=== PATIENT | male | born 1960 | race African-American/Black ===

== ENCOUNTER 2019-07-21 01:56 | Inpatient (IN) | payer OTHER ==
[~2019-07-21] VITALS: Ht 185.4 cm; Wt 79.4 kg
--- NOTE | 2019-07-21 02:44 | PHYS DOC ---
Past Medical History Past Medical History: No Pertinent History Past Surgical History: No Surgical History Alcohol Use: Occasionally Drug Use: None Adult General Chief Complaint Chief Complaint: WEAKNESS/GENERALIZED HPI HPI Patient is a 58 year old -[place] male who presents resents a generalized weakness, malaise, body aches, nonproductive cough for 3 days. Patient also reports fever for the first 2 days chills and sweats. No fever in the past 24 hours. Denies history of COPD, asthma and chronic lung disease. Denies chest pain, nausea vomiting and abdominal pain. No other acute symptoms or complaints [] Review of Systems Review of Systems ROS PER Hpi All other systems were reviewed and found to be within normal limits, except as documented in this note. Current Medications Current Medications Current Medications Medications (Trade) Dose Ordered Sig/Della Start Time Stop Time Status Last Admin Dose Admin Acetaminophen/ Hydrocodone Bitart (Lortab 5/325) 1 tab 1X ONCE 07/21/19 03:45 07/21/19 03:46 UNV Oseltamivir Phosphate (Tamiflu) 75 mg DAILY 07/21/19 09:00 07/26/19 08:59 UNV Physical Exam Physical Exam Constitutional: Well developed, well nourished, no acute distress, non-toxic appearance. [] HENT: Normocephalic, atraumatic, bilateral external ears normal, oropharynx moist, nose normal. [] Eyes: PERRLA, EOMI, conjunctiva normal, no discharge. [] Neck: Normal range of motion, no tenderness, supple, no stridor. [] Cardiovascular:Heart rate regular rhythm, no murmur [] Lungs & Thorax: Respirations nonlabored, coarse rhonchi bilaterally, no rales or wheezing [] Abdomen: Bowel sounds normal, soft, no tenderness, no masses, no pulsatile masses. [] Skin: Warm, dry, no erythema, no rash. [] Back: No tenderness, no CVA tenderness. [] Extremities: No tenderness, no cyanosis, no clubbing, ROM intact, no edema. [] Neurologic: Alert and oriented X 3, normal motor function, normal sensory func tion, no focal deficits noted. [] Psychologic: Affect normal, judgement normal, mood normal. [] Current Patient Data Vital Signs Vital Signs Date Time Temp Pulse Resp B/P (MAP) Pulse Ox O2 Delivery O2 Flow Rate FiO2 1/15/20 01:57 98.6 88 24 134/78 (96) 90 Room Air 98.6 Lab Values Laboratory Tests Test 07/21/19 02:41 07/21/19 03:02 07/21/19 03:06 07/21/19 03:28 Sodium Level 124 mmol/L (136-145) L Potassium Level 3.4 mmol/L (3.5-5.1) L Chloride Level 90 mmol/L (98-107) L Carbon Dioxide Level 25 mmol/L (21-32) Anion Gap 9 (6-14) Blood Urea Nitrogen 35 mg/dL (8-26) H Creatinine 1.5 mg/dL (0.7-1.3) H Estimated GFR (Cockcroft-Gault) 47.7 BUN/Creatinine Ratio 23 (6-20) H Glucose Level 114 mg/dL (70-99) H Calcium Level 8.2 mg/dL (8.5-10.1) L Total Bilirubin 0.7 mg/dL (0.2-1.0) Aspartate Amino Transferase (AST) 146 U/L (15-37) H Alanine Aminotransferase (ALT) 75 U/L (16-63) H Alkaline Phosphatase 80 U/L (46-116) Troponin I Quantitative < 0.017 ng/mL (0.000-0.055) Total Protein 7.7 g/dL (6.4-8.2) Albumin 3.0 g/dL (3.4-5.0) L Albumin/Globulin Ratio 0.6 (1.0-1.7) L Thyroid Stimulating Hormone (TSH) 1.230 uIU/mL (0.358-3.74) Influenza Type A Antigen Positive (NEGATIVE) Influenza Type B Antigen Negative (NEGATIVE) White Blood Count 4.7 x10^3/uL (4.0-11.0) Red Blood Count 4.16 x10^6/uL (4.30-5.70) L Hemoglobin 12.6 g/dL (13.0-17.5) L Hematocrit 36.8 % (39.0-53.0) L Mean Corpuscular Volume 89 fL (79-100) Mean Corpuscular Hemoglobin 30 pg (25-35) Mean Corpuscular Hemoglobin Concent 34 g/dL (31-37) Red Cell Distribution Width 12.5 % (11.5-14.5) Platelet Count 114 x10^3/uL (140-400) L Neutrophils (%) (Auto) 67 % (31-73) Lymphocytes (%) (Auto) 19 % (24-48) L Monocytes (%) (Auto) 14 % (0-9) H Eosinophils (%) (Auto) 0 % (0-3) Basophils (%) (Auto) 0 % (0-3) Neutrophils # (Auto) 3.1 x10^3/uL (1.8-7.7) Lymphocytes # (Auto) 0.9 x10^3/uL (1.0-4.8) L Monocytes # (Auto) 0.7 x10^3/uL (0.0-1.1) Eosinophils # (Auto) 0.0 x10^3/uL (0.0-0.7) Basophils # (Auto) 0.0 x10^3/uL (0.0-0.2) Urine Collection Type Unknown Urine Color Yellow Urine Clarity Clear Urine pH 5.5 Urine Specific [place] 1.020 Urine Protein 100 mg/dL (NEG-TRACE) Urine Glucose (UA) Negative mg/dL (NEG) Urine Ketones (Stick) Negative mg/dL (NEG) Urine Blood Moderate (NEG) Urine Nitrite Negative (NEG) Urine Bilirubin Negative (NEG) Urine Urobilinogen Dipstick 1.0 mg/dL (0.2 mg/dL) Urine Leukocyte Esterase Negative (NEG) Urine RBC 3-5 /HPF (0-2) Urine WBC Occ /HPF (0-4) Urine Squamous Epithelial Cells Occ /LPF Urine Amorphous Sediment Present /HPF Urine Bacteria 0 /HPF (0-FEW) Urine Granular Casts Few /HPF Urine Mucus Slight /LPF Laboratory Tests 07/21/19 03:06 Laboratory Tests 07/21/19 02:41 EKG EKG EKG: reviewed[] Radiology/Procedures Radiology/Procedures CXR: reviewed[] Course & Med Decision Making Course & Med Decision Making Pertinent Labs and Imaging studies reviewed. (See chart for details) [Generalized weakness, and cough. Patient influenza A positive and hyponatremic ] Dragon Disclaimer Dragon Disclaimer This electronic medical record was generated, in whole or in part, using a voice recognition dictation system. Departure Departure Impression: Primary Impression: Hyponatremia Additional Impression: Influenza A Disposition: 09 ADMITTED INPATIENT Condition: STABLE Problem Qualifiers ALAN KEITH DO Jul 21, 2019 02:44
[2019-07-21 02:59] LABS: CALCIUM 8.2 mg/dL (8.5-10.1); CREATININE 1.5 mg/dL (0.7-1.3); GFR 47.7; POTASSIUM 3.4 mmol/L (3.5-5.1)
[2019-07-21 03:06] LABS: ALBUMIN/GLOBULIN RATIO 0.6 (1.0-1.7); TOTAL BILIRUBIN 0.7 mg/dL (0.2-1.0); TOTAL PROTEIN 7.7 g/dL (6.4-8.2)
[2019-07-21 03:11] LABS: BASO % 0 % (0-3); EOS % 0 % (0-3); HEMATOCRIT 36.8 % (39.0-53.0); HEMOGLOBIN 12.6 g/dL (13.0-17.5); LYMPH # 0.9 x10^3/uL (1.0-4.8); LYMPH % 19 % (24-48); MEAN CORPUSCULAR HEMOGLOBIN 30 pg (25-35); MEAN CORPUSCULAR HGB CONC 34 g/dL (31-37); MEAN CORPUSCULAR VOLUME 89 fL (79-100); MONO # 0.7 x10^3/uL (0.0-1.1); MONO % 14 % (0-9); NEUT # 3.1 x10^3/uL (1.8-7.7); NEUT % 67 % (31-73); PLATELET COUNT 114 x10^3/uL (140-400); RED BLOOD COUNT 4.16 x10^6/uL (4.30-5.70); RED CELL DISTRIBUTION WIDTH 12.5 % (11.5-14.5); WHITE BLOOD COUNT 4.7 x10^3/uL (4.0-11.0)
[2019-07-21 03:34] LABS: INFLUENZA A PATIENT POSITIVE (NEGATIVE); INFLUENZA B PATIENT NEGATIVE (NEGATIVE)
[2019-07-21 03:36] LABS: BILIRUBIN,URINE NEGATIVE (NEG); CLARITY,URINE CLEAR; COLOR,URINE YELLOW; NITRITE,URINE NEGATIVE (NEG); PH,URINE 5.5; PROTEIN,URINE 100 mg/dL (NEG-TRACE)
[2019-07-21 03:41] LABS: AMORPHOUS SEDIMENT,UR PRESENT /HPF; BACTERIA,URINE 0 /HPF (0-FEW); GRANULAR CASTS,URINE FEW /HPF; SQUAMOUS EPITHELIAL CELL,UR OCC /LPF; WBC,URINE OCC /HPF (0-4)
[2019-07-21] MEDS ORDERED: OSELTAMIVIR 75 MG CAPSULE PO ONE (03:45)
[2019-07-21] MEDS ORDERED: HYDROcodone/APAP 5/325MG 1 TAB TABLET PO ONE (03:45)
[2019-07-21] MEDS ORDERED: IV NORMAL SALINE 1000ML BAG 1,000 ML IV ONE (04:00)
[2019-07-21] MEDS: IV NORMAL SALINE 1000ML BAG 1,000 ML IV SCH ×3 (05:03→20:16)
--- NOTE | 2019-07-21 05:17 | RAD ---
Chest AP portable at 0252: Reason for examination: Short of breath. The heart size is normal. Mediastinum is unremarkable. Lung martinez show some linear density consistent with atelectasis bilaterally. No pleural effusions or consolidative infiltrates are present. No acute bony abnormalities are seen. IMPRESSION: Linear densities consistent with atelectasis at the lung bases. Electronically signed by: Sue Shipley MD (07/21/2019 5:14 AM) [facility] [place]
--- NOTE | 2019-07-21 05:43 | EKG ---
[facility] [address] [place] [address] Test Date: 2019-07-21 Test Time: 02:19:13 Pat Name: FER BAILEY Department: Room: Gender: M Ela Teacher: : 1960 Requested By: ALAN KEITH Order Number: [id number] Reading MD: Measurements Intervals Rolfe Rate: 82 P: 66 SC: 168 QRS: 49 QRSD: 90 T: 63 QT: 348 QTc: 409 Interpretive Statements SINUS RHYTHM NON SPECIFIC ST-T ABNORMALITY (ELEVATION) OTHERWISE NORMAL ECG No previous ECG available for comparison
[2019-07-21 07:15] VITALS: BP 114/79
[2019-07-21] MEDS: IPRATRPIUM/ALBUTEROL 0.5/2.5MG 3 ML NEBU. NEB SCH ×4 (07:43→19:22)
[2019-07-21 10:59] VITALS: BP 119/76
--- NOTE | 2019-07-21 14:44 | HP ---
ADMIT DATE: 07/21/2019 CHIEF COMPLAINT: Weakness. HISTORY OF PRESENT ILLNESS: The patient is a pleasant 58-year-old male who presented with weakness. He has had malaise and body aches and nonproductive cough, rates it as a 7/10, has been occurring for several days. Moving makes it worse and sitting still makes it better. He tried to take some home meds, but that did not seem to work. We tested him for flu in the ER. He has got influenza and his sodium level is low. We are going to admit the patient, give him Tamiflu and replace his electrolytes. PAST MEDICAL HISTORY: Benign. ALLERGIES: None. FAMILY HISTORY: Hypertension. SOCIAL HISTORY: Does not drink, smoke or take drugs. MEDICATIONS: Reviewed, please refer to the MRAD. REVIEW OF SYSTEMS: GENERAL: He complains of weakness and malaise and periodic subjective fevers. SKIN: No bruising, hair changes or rashes. EYES: No blurred, double or loss of vision. NOSE AND THROAT: No history of nosebleeds, hoarseness or sore throat. HEART: No history of palpitations, chest pain or shortness of breath on exertion. LUNGS: Denies cough, hemoptysis, wheezing or shortness of breath. GASTROINTESTINAL: Denies changes in appetite, nausea, vomiting, diarrhea or constipation. GENITOURINARY: No history of frequency, urgency, hesitancy or nocturia. NEUROLOGIC: Denies history of numbness, tingling, tremor or weakness. PSYCHIATRIC: No history of panic, anxiety or depression. ENDOCRINE: No history of heat or cold intolerance, polyuria or polydipsia. EXTREMITIES: Denies muscle weakness, joint pain, pain on walking or stiffness. PHYSICAL EXAMINATION: VITALS: Within normal limits and are stable. GENERAL: No apparent distress. Alert and oriented. HEENT: Normal cephalic atraumatic, external auditory canals are patent EYES: Extraocular muscles are intact, pupils are equally round and reactive to light and accommodation MUSCULOSKELETAL: Well developed, well nourished, good range of motion ENDOCRINE: No thyromegaly was palpated LYMPHATICS: No cervical chain or axillary nodes were noted HEMATOPOIETIC: No bruising NECK: Supple, no JVD, no thyromegaly was noted. LUNGS: Clear to auscultation in all lung martinez without rhonchi or wheezing. HEART: RRR, S1, S2 present. Peripheral pulses intact, no obvious murmurs were noted. ABDOMEN: Soft, nontender. Positive bowel sounds no organomegaly, normal bowel sounds. EXTREMITIES: Without any cyanosis, clubbing, or edema. Pedal pulses intact, Homans sign is negative. NEUROLOGIC: Normal speech, normal tone. A & O x3, moves all extremities, no obvious focal deficits. PSYCHIATRIC: Normal affect, normal mood. Stable. SKIN: No ulcerations or rashes, good skin turgor, no jaundice. VASCULAR: Good capillary refill, neurovascular bundle appears to be intact. LABORATORY DATA: His sodium level was 124. ASSESSMENT AND PLAN: Influenza and hyponatremia. The patient has been admitted. We are going to replace his electrolytes with normal saline at 75 mL an hour, trend his sodium level with daily labs. Tamiflu 75 p.o. b.i.d. Deep venous thrombosis prophylaxis. Full code. Home meds, DuoNebs q.i.d., p.r.n. O2, p.r.n. hydrocodone. Check a TSH. LINDSAYL Luba IGLESIAS DO DR: JOHNSON/vicenta JOB#: [id number] / [id number]
[2019-07-21] MEDS ORDERED: ACETAMINOPHEN 325 MG TABLET. PO PRN (14:45)
[2019-07-21 15:14] VITALS: BP 146/86
[2019-07-21] MEDS ORDERED: HYDROcodone/APAP 5/325MG 1 TAB TABLET PO PRN (16:15)
[2019-07-21 19:00] VITALS: BP 141/89
[2019-07-21] MEDS: OSELTAMIVIR 75 MG CAPSULE PO SCH (20:16)
[2019-07-21 23:00] VITALS: BP 128/83
[2019-07-22 03:00] VITALS: BP 117/78
[2019-07-22 07:00] VITALS: BP 136/78
[2019-07-22] MEDS: IPRATRPIUM/ALBUTEROL 0.5/2.5MG 3 ML NEBU. NEB SCH (07:14)
[2019-07-22] MEDS: OSELTAMIVIR 75 MG CAPSULE PO SCH ×2 (08:45→21:37)
--- NOTE | 2019-07-22 08:46 | PDOC ---
PROGRESS NOTES History of Present Illness History of Present Illness ASSESSMENT AND PLAN: Influenza A hyponatremia. ACUTE hypoxic respiratory failure acute renal injury, vasomotor nephropathy MILD THROMBOCYTOPENIA SEC TO VIRAL SYNDROME, will follow mild tachycardia admitted. normal saline at 75 mL / hour, trend serum sodium . Tamiflu 75 p.o. b.i.d. Deep venous thrombosis prophylaxis. Full code. Home meds, DuoNebs q.i.d., p.r.n. O2, support prn p.r.n. hydrocodone. TSH. bmp, cbc today consult pulm 07/22 c/o myalgias, cough, less ////home soon if ok with pulm Vitals Vitals Vital Signs Date Time Temp Pulse Resp B/P (MAP) Pulse Ox O2 Delivery O2 Flow Rate FiO2 07/22/19 07:17 93 Room Air 07/22/19 07:00 98.1 85 18 136/78 (97) 98.1 Physical Exam Physical Exam HEENT: Normal cephalic atraumatic, external auditory canals are patent EYES: Extraocular muscles are intact, pupils are equally round and reactive to light and accommodation MUSCULOSKELETAL: Well developed, well nourished, good range of motion ENDOCRINE: No thyromegaly LYMPHATICS: No cervical chain or axillary nodes were noted HEMATOPOIETIC: No bruising NECK: Supple, no JVD, no thyromegaly was noted. LUNGS: Clear to auscultation in all lung martinez without rhonchi or wheezing. HEART: RRR, S1, S2 present. Peripheral pulses intact, no obvious murmurs were noted. ABDOMEN: Soft, nontender. Positive bowel sounds no organomegaly, normal bowel sounds. EXTREMITIES: Without any cyanosis, clubbing, or edema. Pedal pulses intact, Homans sign is negative. NEUROLOGIC: Normal speech, normal tone. A & O x3, moves all extremities, no obvious focal deficits. PSYCHIATRIC: Normal affect, normal mood. Stable. SKIN: No ulcerations or rashes, good skin turgor, no jaundice. VASCULAR: Good capillary refill, neurovascular bundle appears to be intact. General: Alert, Oriented X3, Cooperative, No acute distress Heart: Regular rate Lungs: Clear Abdomen: Soft Extremities: No cyanosis Labs LABS REASON: soa PROCEDURE: CHEST AP ONLY Chest AP portable at 0252: Reason for examination: Short of breath. The heart size is normal. Mediastinum is unremarkable. Lung martinez show some linear density consistent with atelectasis bilaterally. No pleural effusions or consolidative infiltrates are present. No acute bony abnormalities are seen. IMPRESSION: Linear densities consistent with atelectasis at the lung bases. Electronically signed by: Sue Cabezas MD (07/21/2019 5:14 AM) [facility] DICTATED and SIGNED BY: SUE CABEZAS MD DATE: 07/21/19 0514 Assessment and Plan Assessmemt and Plan Problems Medical Problems: (1) Hyponatremia Status: Acute (2) Influenza A Status: Acute Comment Review of Relevant I have reviewed the following items farideh (where applicable) has been applied. Labs Laboratory Tests Test 07/21/19 02:41 07/21/19 03:02 07/21/19 03:06 07/21/19 03:28 Sodium Level 124 mmol/L (136-145) Potassium Level 3.4 mmol/L (3.5-5.1) Chloride Level 90 mmol/L (98-107) Carbon Dioxide Level 25 mmol/L (21-32) Anion Gap 9 (6-14) Blood Urea Nitrogen 35 mg/dL (8-26) Creatinine 1.5 mg/dL (0.7-1.3) Estimated GFR (Cockcroft-Gault) 47.7 BUN/Creatinine Ratio 23 (6-20) Glucose Level 114 mg/dL (70-99) Calcium Level 8.2 mg/dL (8.5-10.1) Total Bilirubin 0.7 mg/dL (0.2-1.0) Aspartate Amino Transf (AST/SGOT) 146 U/L (15-37) Alanine Aminotransferase (ALT/SGPT) 75 U/L (16-63) Alkaline Phosphatase 80 U/L (46-116) Troponin I Quantitative < 0.017 ng/mL (0.000-0.055) Total Protein 7.7 g/dL (6.4-8.2) Albumin 3.0 g/dL (3.4-5.0) Albumin/Globulin Ratio 0.6 (1.0-1.7) Thyroid Stimulating Hormone (TSH) 1.230 uIU/mL (0.358-3.74) Influenza Type A Antigen Positive (NEGATIVE) Influenza Type B Antigen Negative (NEGATIVE) White Blood Count 4.7 x10^3/uL (4.0-11.0) Red Blood Count 4.16 x10^6/uL (4.30-5.70) Hemoglobin 12.6 g/dL (13.0-17.5) Hematocrit 36.8 % (39.0-53.0) Mean Corpuscular Volume 89 fL (79-100) Mean Corpuscular Hemoglobin 30 pg (25-35) Mean Corpuscular Hemoglobin Concent 34 g/dL (31-37) Red Cell Distribution Width 12.5 % (11.5-14.5) Platelet Count 114 x10^3/uL (140-400) Neutrophils (%) (Auto) 67 % (31-73) Lymphocytes (%) (Auto) 19 % (24-48) Monocytes (%) (Auto) 14 % (0-9) Eosinophils (%) (Auto) 0 % (0-3) Basophils (%) (Auto) 0 % (0-3) Neutrophils # (Auto) 3.1 x10^3/uL (1.8-7.7) Lymphocytes # (Auto) 0.9 x10^3/uL (1.0-4.8) Monocytes # (Auto) 0.7 x10^3/uL (0.0-1.1) Eosinophils # (Auto) 0.0 x10^3/uL (0.0-0.7) Basophils # (Auto) 0.0 x10^3/uL (0.0-0.2) Urine Collection Type Unknown Urine Color Yellow Urine Clarity Clear Urine pH 5.5 Urine Specific [place] 1.020 Urine Protein 100 mg/dL (NEG-TRACE) Urine Glucose (UA) Negative mg/dL (NEG) Urine Ketones (Stick) Negative mg/dL (NEG) Urine Blood Moderate (NEG) Urine Nitrite Negative (NEG) Urine Bilirubin Negative (NEG) Urine Urobilinogen Dipstick 1.0 mg/dL (0.2 mg/dL) Urine Leukocyte Esterase Negative (NEG) Urine RBC 3-5 /HPF (0-2) Urine WBC Occ /HPF (0-4) Urine Squamous Epithelial Cells Occ /LPF Urine Amorphous Sediment Present /HPF Urine Bacteria 0 /HPF (0-FEW) Urine Granular Casts Few /HPF Urine Mucus Slight /LPF Medications Current Medications Acetaminophen/ Hydrocodone Bitart (Lortab 5/325) 1 tab 1X ONCE PO Last administered on 07/21/19at 03:53; Start 07/21/19 at 03:45; Stop 07/21/19 at 03:46; Status DC Oseltamivir Phosphate (Tamiflu) 75 mg 1X ONCE PO Last administered on 07/21/19at 03:53; Start 07/21/19 at 03:45; Stop 07/21/19 at 03:46; Status DC Sodium Chloride 1,000 ml @ 1,000 mls/hr 1X ONCE IV Last administered on 07/21/19at 04:00; Start 07/21/19 at 04:00; Stop 07/21/19 at 04:59; Status DC Sodium Chloride 1,000 ml @ 125 mls/hr Q8H IV Last administered on 07/21/19at 20:16; Start 07/21/19 at 04:00; Stop 07/22/19 at 03:59; Status DC Albuterol/ Ipratropium (Duoneb) 3 ml RTQID NEB Last administered on 07/22/19at 07:14; Start 07/21/19 at 08:00; Stop 07/22/19 at 07:59; Status DC Acetaminophen (Tylenol) 650 mg PRN Q6HRS PRN PO MILD PAIN / TEMP Last administ ered on 07/21/19at 14:41; Start 07/21/19 at 14:45 Oseltamivir Phosphate (Tamiflu) 75 mg BID PO Last administered on 07/21/19at 20 :16; Start 07/21/19 at 21:00; Stop 07/26/19 at 20:59 Acetaminophen/ Hydrocodone Bitart (Lortab 5/325) 1 tab PRN Q4HRS PRN PO MO DERATE-SEVERE PAIN; Start 07/21/19 at 16:15 Vitals/I & O Vital Sign - Last 24 Hours 07/21/19 07/21/19 07/21/19 07/21/19 10:59 11:33 15:14 16:23 Temp 99.6 99.9 99.6 99.9 Pulse 88 89 Resp 20 18 B/P (MAP) 119/76 (90) 146/86 (106) Pulse Ox 94 95 94 O2 Delivery Room Air Room Air Room Air Room Air 07/21/19 07/21/19 07/21/1907/21/20 19:00 19:22 20:10 23:00 Temp 98.6 98.6 98.6 98.6 Pulse 94 80 Resp 18 16 B/P (MAP) 141/89 (106) 128/83 (98) Pulse Ox 94 96 O2 Delivery Room Air Room Air Room Air Room Air 07/22/19 07/22/19 07/22/19 03:00 07:00 07:17 Temp 98.1 98.1 98.1 98.1 Pulse 102 85 Resp 18 18 B/P (MAP) 117/78 (91) 136/78 (97) Pulse Ox 93 96 93 O2 Delivery Room Air Room Air Room Air Intake and Output 07/21/19 07/21/19 07/22/19 15:00 23:00 07:00 Intake Total 480 ml 360 ml 500 ml Output Total 1150 ml Balance 480 ml 360 ml -650 ml ANKITA ALVES MD Jul 22, 2019 08:46
[2019-07-22] MEDS ORDERED: POTASSIUM CHLORIDE 20 MEQ TABLET.ER. PO ONE ×2 (09:00→11:45)
[2019-07-22 09:57] LABS: BASO % 1 % (0-3); EOS % 0 % (0-3); HEMATOCRIT 35.4 % (39.0-53.0); HEMOGLOBIN 12.1 g/dL (13.0-17.5); LYMPH # 1.4 x10^3/uL (1.0-4.8); LYMPH % 27 % (24-48); MEAN CORPUSCULAR HEMOGLOBIN 31 pg (25-35); MEAN CORPUSCULAR HGB CONC 34 g/dL (31-37); MEAN CORPUSCULAR VOLUME 90 fL (79-100); MONO # 0.6 x10^3/uL (0.0-1.1); MONO % 13 % (0-9); NEUT % 60 % (31-73); PLATELET COUNT 122 x10^3/uL (140-400); RED BLOOD COUNT 3.96 x10^6/uL (4.30-5.70); RED CELL DISTRIBUTION WIDTH 12.9 % (11.5-14.5); WHITE BLOOD COUNT 5.1 x10^3/uL (4.0-11.0)
[2019-07-22 10:07] LABS: CALCIUM 7.7 mg/dL (8.5-10.1); CREATININE 1.1 mg/dL (0.7-1.3); GFR 82.6; POTASSIUM 3.2 mmol/L (3.5-5.1)
[2019-07-22 11:00] VITALS: BP 122/81
[2019-07-22 15:00] VITALS: BP 120/87
--- NOTE | 2019-07-22 16:27 | PDOC ---
PULMONARY PROGRESS NOTES Vitals Vital Signs Date Time Temp Pulse Resp B/P (MAP) Pulse Ox O2 Delivery O2 Flow Rate FiO2 07/22/19 11:37 93 Room Air 07/22/19 11:00 98.0 99 18 122/81 (95) 98.0 Lungs: Clear Labs Laboratory Tests Test 07/21/19 02:41 07/21/19 03:02 07/21/19 03:06 07/21/19 03:28 Sodium Level 124 mmol/L (136-145) Potassium Level 3.4 mmol/L (3.5-5.1) Chloride Level 90 mmol/L (98-107) Carbon Dioxide Level 25 mmol/L (21-32) Anion Gap 9 (6-14) Blood Urea Nitrogen 35 mg/dL (8-26) Creatinine 1.5 mg/dL (0.7-1.3) Estimated GFR (Cockcroft-Gault) 47.7 BUN/Creatinine Ratio 23 (6-20) Glucose Level 114 mg/dL (70-99) Plasma/Serum Osmolality 265 mOsmol/kg (275-295) Calcium Level 8.2 mg/dL (8.5-10.1) Total Bilirubin 0.7 mg/dL (0.2-1.0) Aspartate Amino Transf (AST/SGOT) 146 U/L (15-37) Alanine Aminotransferase (ALT/SGPT) 75 U/L (16-63) Alkaline Phosphatase 80 U/L (46-116) Troponin I Quantitative < 0.017 ng/mL (0.000-0.055) Total Protein 7.7 g/dL (6.4-8.2) Albumin 3.0 g/dL (3.4-5.0) Albumin/Globulin Ratio 0.6 (1.0-1.7) Thyroid Stimulating Hormone (TSH) 1.230 uIU/mL (0.358-3.74) Influenza Type A Antigen Positive (NEGATIVE) Influenza Type B Antigen Negative (NEGATIVE) White Blood Count 4.7 x10^3/uL (4.0-11.0) Red Blood Count 4.16 x10^6/uL (4.30-5.70) Hemoglobin 12.6 g/dL (13.0-17.5) Hematocrit 36.8 % (39.0-53.0) Mean Corpuscular Volume 89 fL (79-100) Mean Corpuscular Hemoglobin 30 pg (25-35) Mean Corpuscular Hemoglobin Concent 34 g/dL (31-37) Red Cell Distribution Width 12.5 % (11.5-14.5) Platelet Count 114 x10^3/uL (140-400) Neutrophils (%) (Auto) 67 % (31-73) Lymphocytes (%) (Auto) 19 % (24-48) Monocytes (%) (Auto) 14 % (0-9) Eosinophils (%) (Auto) 0 % (0-3) Basophils (%) (Auto) 0 % (0-3) Neutrophils # (Auto) 3.1 x10^3/uL (1.8-7.7) Lymphocytes # (Auto) 0.9 x10^3/uL (1.0-4.8) Monocytes # (Auto) 0.7 x10^3/uL (0.0-1.1) Eosinophils # (Auto) 0.0 x10^3/uL (0.0-0.7) Basophils # (Auto) 0.0 x10^3/uL (0.0-0.2) Urine Collection Type Unknown Urine Color Yellow Urine Clarity Clear Urine pH 5.5 Urine Specific [place] 1.020 Urine Protein 100 mg/dL (NEG-TRACE) Urine Glucose (UA) Negative mg/dL (NEG) Urine Ketones (Stick) Negative mg/dL (NEG) Urine Blood Moderate (NEG) Urine Nitrite Negative (NEG) Urine Bilirubin Negative (NEG) Urine Urobilinogen Dipstick 1.0 mg/dL (0.2 mg/dL) Urine Leukocyte Esterase Negative (NEG) Urine RBC 3-5 /HPF (0-2) Urine WBC Occ /HPF (0-4) Urine Squamous Epithelial Cells Occ /LPF Urine Amorphous Sediment Present /HPF Urine Bacteria 0 /HPF (0-FEW) Urine Granular Casts Few /HPF Urine Mucus Slight /LPF Urine Osmolality 537 mOsmol/kg (.) Test 07/22/19 09:25 White Blood Count 5.1 x10^3/uL (4.0-11.0) Red Blood Count 3.96 x10^6/uL (4.30-5.70) Hemoglobin 12.1 g/dL (13.0-17.5) Hematocrit 35.4 % (39.0-53.0) Mean Corpuscular Volume 90 fL (79-100) Mean Corpuscular Hemoglobin 31 pg (25-35) Mean Corpuscular Hemoglobin Concent 34 g/dL (31-37) Red Cell Distribution Width 12.9 % (11.5-14.5) Platelet Count 122 x10^3/uL (140-400) Neutrophils (%) (Auto) 60 % (31-73) Lymphocytes (%) (Auto) 27 % (24-48) Monocytes (%) (Auto) 13 % (0-9) Eosinophils (%) (Auto) 0 % (0-3) Basophils (%) (Auto) 1 % (0-3) Neutrophils # (Auto) 3.0 x10^3/uL (1.8-7.7) Lymphocytes # (Auto) 1.4 x10^3/uL (1.0-4.8) Monocytes # (Auto) 0.6 x10^3/uL (0.0-1.1) Eosinophils # (Auto) 0.0 x10^3/uL (0.0-0.7) Basophils # (Auto) 0.0 x10^3/uL (0.0-0.2) Sodium Level 137 mmol/L (136-145) Potassium Level 3.2 mmol/L (3.5-5.1) Chloride Level 105 mmol/L (98-107) Carbon Dioxide Level 25 mmol/L (21-32) Anion Gap 7 (6-14) Blood Urea Nitrogen 13 mg/dL (8-26) Creatinine 1.1 mg/dL (0.7-1.3) Estimated GFR (Cockcroft-Gault) 82.6 Glucose Level 121 mg/dL (70-99) Calcium Level 7.7 mg/dL (8.5-10.1) Laboratory Tests Test 07/22/19 09:25 White Blood Count 5.1 x10^3/uL (4.0-11.0) Red Blood Count 3.96 x10^6/uL (4.30-5.70) Hemoglobin 12.1 g/dL (13.0-17.5) Hematocrit 35.4 % (39.0-53.0) Mean Corpuscular Volume 90 fL (79-100) Mean Corpuscular Hemoglobin 31 pg (25-35) Mean Corpuscular Hemoglobin Concent 34 g/dL (31-37) Red Cell Distribution Width 12.9 % (11.5-14.5) Platelet Count 122 x10^3/uL (140-400) Neutrophils (%) (Auto) 60 % (31-73) Lymphocytes (%) (Auto) 27 % (24-48) Monocytes (%) (Auto) 13 % (0-9) Eosinophils (%) (Auto) 0 % (0-3) Basophils (%) (Auto) 1 % (0-3) Neutrophils # (Auto) 3.0 x10^3/uL (1.8-7.7) Lymphocytes # (Auto) 1.4 x10^3/uL (1.0-4.8) Monocytes # (Auto) 0.6 x10^3/uL (0.0-1.1) Eosinophils # (Auto) 0.0 x10^3/uL (0.0-0.7) Basophils # (Auto) 0.0 x10^3/uL (0.0-0.2) Sodium Level 137 mmol/L (136-145) Potassium Level 3.2 mmol/L (3.5-5.1) Chloride Level 105 mmol/L (98-107) Carbon Dioxide Level 25 mmol/L (21-32) Anion Gap 7 (6-14) Blood Urea Nitrogen 13 mg/dL (8-26) Creatinine 1.1 mg/dL (0.7-1.3) Estimated GFR (Cockcroft-Gault) 82.6 Glucose Level 121 mg/dL (70-99) Calcium Level 7.7 mg/dL (8.5-10.1) Impression . FULL NOTE DICTATED THANKS HERO GREGG MD Jul 22, 2019 16:27
[2019-07-22 19:00] VITALS: BP 131/69
[2019-07-22 23:00] VITALS: BP 152/92
--- NOTE | 2019-07-23 00:06 | CONS ---
DATE OF CONSULTATION: 07/22/2019 ATTENDING PHYSICIAN: Leydi Moise DO CONSULTING PHYSICIAN: Hero Gregg MD REASON FOR CONSULTATION: The patient seen in pulmonary consultation at the request of Dr. Moise for increasing shortness of air, wheezing and cough. HISTORY OF PRESENT ILLNESS: The patient is a 58-year-old with no underlying comorbidities, presented with increasing shortness of breath, cough, wheezing, body aches and temperature well above 100. He was seen in the Emergency Department, was tested positive for influenza. He was admitted, I was asked to see him in consultation. His chest x-ray was reviewed. There was some linear atelectasis and infiltrates in the bases. The patient does not smoke. He does not carry a history of asthma. REVIEW OF SYSTEMS: As indicated above, otherwise a 10-point system was reviewed and negative. FAMILY HISTORY: No family history of lung disorders. SOCIAL HISTORY: Denies any alcohol or tobacco. CURRENT MEDICATIONS: List was reviewed. PHYSICAL EXAMINATION: VITAL SIGNS: Stable. O2 saturation was greater than 92%. HEENT: Eyes, the sclerae were nonicteric. NECK: Jugular venous distention was not elevated. No lymphadenopathy. CHEST: Full expansion. LUNGS: Wheezes and rales throughout both lung martinez. CARDIOVASCULAR: Regular rate and rhythm with S1, S2, no S3. ABDOMEN: Soft, nontender, nondistended. EXTREMITIES: No clubbing, cyanosis or edema. NEUROLOGIC: The patient was awake, alert, following commands. A detailed neuro exam was not performed. LABORATORY DATA: Influenza ____ was positive. Sodium was low. BUN was elevated. Creatinine was elevated. IMPRESSION: 1. Influenza ____. 2. Hyponatremia. 3. Acute kidney injury. 4. Wheezing and respiratory distress secondary to influenza. PLAN: 1. Continue Tamiflu. 2. Replace hypertonic saline. 3. Follow clinical course and make further recommendations. I do appreciate the privilege in sharing in the patient's care. HERO GREGG MD DR: FER/vicenta JOB#: [id number] / [id number]
[2019-07-23 03:00] VITALS: BP 153/92
[2019-07-23 06:34] LABS: CALCIUM 8.4 mg/dL (8.5-10.1); CREATININE 1.1 mg/dL (0.7-1.3); GFR 82.6; POTASSIUM 4.1 mmol/L (3.5-5.1)
[2019-07-23 07:00] VITALS: BP 133/86
[2019-07-23] MEDS ORDERED: POTASSIUM CHLORIDE 20 MEQ TABLET.ER. PO SCH (08:00)
[2019-07-23] MEDS: OSELTAMIVIR 75 MG CAPSULE PO SCH (08:58)
--- NOTE | 2019-07-23 10:49 | PDOC ---
PROGRESS NOTES History of Present Illness History of Present Illness DISCHARGE DX Influenza A, ACUTE hyponatremia. ACUTE hypoxic respiratory failure, RESOLVED acute renal injury, vasomotor nephropathy MILD THROMBOCYTOPENIA SEC TO VIRAL SYNDROME, will follow mild tachycardia admitted. normal saline at 75 mL / hour, trend serum sodium . Tamiflu 75 p.o. b.i.d. Deep venous thrombosis prophylaxis. Full code. Home meds, DuoNebs q.i.d., p.r.n. O2, support prn p.r.n. hydrocodone. TSH. bmp, cbc 07/22 consult pulm 07/22 c/o myalgias, cough, less ////home soon if ok with pulm 07/23 much better, home today d/c planning 24 min Vitals Vitals Vital Signs Date Time Temp Pulse Resp B/P (MAP) Pulse Ox O2 Delivery O2 Flow Rate FiO2 07/23/19 07:30 Room Air 07/23/19 07:00 98.3 88 18 133/86 (102) 95 98.3 Physical Exam Physical Exam HEENT: Normal cephalic atraumatic, external auditory canals are patent EYES: Extraocular muscles are intact, pupils are equally round and reactive to light and accommodation MUSCULOSKELETAL: Well developed, well nourished, good range of motion ENDOCRINE: No thyromegaly LYMPHATICS: No cervical chain or axillary nodes were noted HEMATOPOIETIC: No bruising NECK: Supple, no JVD, no thyromegaly was noted. LUNGS: Clear to auscultation in all lung martinez without rhonchi or wheezing. HEART: RRR, S1, S2 present. Peripheral pulses intact, no obvious murmurs were noted. ABDOMEN: Soft, nontender. Positive bowel sounds no organomegaly, normal bowel sounds. EXTREMITIES: Without any cyanosis, clubbing, or edema. Pedal pulses intact, Homans sign is negative. NEUROLOGIC: Normal speech, normal tone. A & O x3, moves all extremities, no obvious focal deficits. PSYCHIATRIC: Normal affect, normal mood. Stable. SKIN: No ulcerations or rashes, good skin turgor, no jaundice. VASCULAR: Good capillary refill, neurovascular bundle appears to be intact. General: Alert, Oriented X3, Cooperative, No acute distress Heart: Regular rate Lungs: Clear Abdomen: Normal bowel sounds, Soft Extremities: No cyanosis Skin: No rashes Labs LABS Laboratory Tests Test 07/23/19 03:34 Sodium Level 139 mmol/L (136-145) Potassium Level 4.1 mmol/L (3.5-5.1) Chloride Level 104 mmol/L (98-107) Carbon Dioxide Level 28 mmol/L (21-32) Anion Gap 7 (6-14) Blood Urea Nitrogen 12 mg/dL (8-26) Creatinine 1.1 mg/dL (0.7-1.3) Estimated GFR (Cockcroft-Gault) 82.6 Glucose Level 95 mg/dL (70-99) Calcium Level 8.4 mg/dL (8.5-10.1) Assessment and Plan Assessmemt and Plan Problems Medical Problems: (1) Hyponatremia Status: Acute (2) Influenza A Status: Acute Comment Review of Relevant I have reviewed the following items farideh (where applicable) has been applied. Labs Laboratory Tests Test 07/22/19 09:25 07/23/19 03:34 White Blood Count 5.1 x10^3/uL (4.0-11.0) Red Blood Count 3.96 x10^6/uL (4.30-5.70) Hemoglobin 12.1 g/dL (13.0-17.5) Hematocrit 35.4 % (39.0-53.0) Mean Corpuscular Volume 90 fL (79-100) Mean Corpuscular Hemoglobin 31 pg (25-35) Mean Corpuscular Hemoglobin Concent 34 g/dL (31-37) Red Cell Distribution Width 12.9 % (11.5-14.5) Platelet Count 122 x10^3/uL (140-400) Neutrophils (%) (Auto) 60 % (31-73) Lymphocytes (%) (Auto) 27 % (24-48) Monocytes (%) (Auto) 13 % (0-9) Eosinophils (%) (Auto) 0 % (0-3) Basophils (%) (Auto) 1 % (0-3) Neutrophils # (Auto) 3.0 x10^3/uL (1.8-7.7) Lymphocytes # (Auto) 1.4 x10^3/uL (1.0-4.8) Monocytes # (Auto) 0.6 x10^3/uL (0.0-1.1) Eosinophils # (Auto) 0.0 x10^3/uL (0.0-0.7) Basophils # (Auto) 0.0 x10^3/uL (0.0-0.2) Sodium Level 137 mmol/L (136-145) 139 mmol/L (136-145) Potassium Level 3.2 mmol/L (3.5-5.1) 4.1 mmol/L (3.5-5.1) Chloride Level 105 mmol/L (98-107) 104 mmol/L (98-107) Carbon Dioxide Level 25 mmol/L (21-32) 28 mmol/L (21-32) Anion Gap 7 (6-14) 7 (6-14) Blood Urea Nitrogen 13 mg/dL (8-26) 12 mg/dL (8-26) Creatinine 1.1 mg/dL (0.7-1.3) 1.1 mg/dL (0.7-1.3) Estimated GFR (Cockcroft-Gault) 82.6 82.6 Glucose Level 121 mg/dL (70-99) 95 mg/dL (70-99) Calcium Level 7.7 mg/dL (8.5-10.1) 8.4 mg/dL (8.5-10.1) Laboratory Tests Test 07/23/19 03:34 Sodium Level 139 mmol/L (136-145) Potassium Level 4.1 mmol/L (3.5-5.1) Chloride Level 104 mmol/L (98-107) Carbon Dioxide Level 28 mmol/L (21-32) Anion Gap 7 (6-14) Blood Urea Nitrogen 12 mg/dL (8-26) Creatinine 1.1 mg/dL (0.7-1.3) Estimated GFR (Cockcroft-Gault) 82.6 Glucose Level 95 mg/dL (70-99) Calcium Level 8.4 mg/dL (8.5-10.1) Medications Current Medications Acetaminophen/ Hydrocodone Bitart (Lortab 5/325) 1 tab 1X ONCE PO Last administered on 07/21/19at 03:53; Start 07/21/19 at 03:45; Stop 07/21/19 at 03:46; Status DC Oseltamivir Phosphate (Tamiflu) 75 mg 1X ONCE PO Last administered on 07/21/19at 03:53; Start 07/21/19 at 03:45; Stop 07/21/19 at 03:46; Status DC Sodium Chloride 1,000 ml @ 1,000 mls/hr 1X ONCE IV Last administered on 07/21/19at 04:00; Start 07/21/19 at 04:00; Stop 07/21/19 at 04:59; Status DC Sodium Chloride 1,000 ml @ 125 mls/hr Q8H IV Last administered on 07/21/19at 20:16; Start 07/21/19 at 04:00; Stop 07/22/19 at 03:59; Status DC Albuterol/ Ipratropium (Duoneb) 3 ml RTQID NEB Last administered on 07/22/19at 07:14; Start 07/21/19 at 08:00; Stop 07/22/19 at 07:59; Status DC Acetaminophen (Tylenol) 650 mg PRN Q6HRS PRN PO MILD PAIN / TEMP Last admini stered on 07/21/19at 14:41; Start 07/21/19 at 14:45 Oseltamivir Phosphate (Tamiflu) 75 mg BID PO Last administered on 07/23/19at 08:58; Start 07/21/19 at 21:00; Stop 07/26/19 at 20:59 Acetaminophen/ Hydrocodone Bitart (Lortab 5/325) 1 tab PRN Q4HRS PRN PO MODERATE-SEVERE PAIN; Start 07/21/19 at 16:15 Potassium Chloride (Klor-Con) 40 meq 1X ONCE PO Last administered on 07/22/19at 10:49; Start 07/22/19 at 09:00; Stop 07/22/19 at 09:01; Status DC Potassium Chloride (Klor-Con) 20 meq DAILYWBKFT PO Last administered on 07/23/19at 08:58; Start 07/23/19 at 08:00 Potassium Chloride (Klor-Con) 20 meq 1X ONCE PO Last administered on 07/22/19at 12:55; Start 07/22/19 at 11:45; Stop 07/22/19 at 11:48; Status DC Vitals/I & O Vital Sign - Last 24 Hours 07/22/19 07/22/19 07/22/19 07/22/19 11:00 11:37 15:00 19:00 Temp 98.0 98.5 98.3 98.0 98.5 98.3 Pulse 99 87 94 Resp 18 18 18 B/P (MAP) 122/81 (95) 120/87 (98) 131/69 (89) Pulse Ox 94 93 97 94 O2 Delivery Room Air Room Air Room Air Room Air 07/22/19 07/22/19 07/23/19 07/23/19 20:00 23:00 03:00 07:00 Temp 98.1 98.2 98.3 98.1 98.2 98.3 Pulse 95 94 88 Resp 18 18 18 B/P (MAP) 152/92 (112) 153/92 (112) 133/86 (102) Pulse Ox 96 93 95 O2 Delivery Room Air Room Air Room Air Room Air 07/23/19 07:30 O2 Delivery Room Air Intake and Output 07/22/19 07/22/19 07/23/19 15:00 23:00 07:00 Output Total 650 ml Balance -650 ml ANKTIA ALVES MD Jul 23, 2019 10:49
[2019-07-23 11:00] VITALS: BP 136/84
--- NOTE | 2019-07-23 12:37 | PDOC3 ---
Discharge Summary Date of Admission: Jul 21, 2019 Date of Discharge: Jul 23, 2019 Follow-Up: 3-5 days Admitting Diagnosis comment: DISCHARGE DX Influenza A, ACUTE hyponatremia. IMPROVED ACUTE hypoxic respiratory failure, RESOLVED acute renal injury, vasomotor nephropathy MILD THROMBOCYTOPENIA SEC TO VIRAL SYNDROME, will follow mild tachycardia admitted. normal saline at 75 mL / hour, trend serum sodium . Tamiflu 75 p.o. b.i.d. Deep venous thrombosis prophylaxis. Full code. Home meds, DuoNebs q.i.d., p.r.n. O2, support prn p.r.n. hydrocodone. TSH. bmp, cbc 07/22 consult pulm 07/22 c/o myalgias, cough, less ////home soon if ok with pulm 07/23 much better, home today d/c planning 24 min Vitals Vitals Vital Signs Date Time Temp Pulse Resp B/P (MAP) Pulse Ox O2 Delivery O2 Flow Rate FiO2 07/23/19 07:30 Room Air 07/23/19 07:00 98.3 88 18 133/86 (102) 95 98.3 Physical Exam Physical Exam HEENT: Normal cephalic atraumatic, external auditory canals are patent EYES: Extraocular muscles are intact, pupils are equally round and reactive to light and accommodation MUSCULOSKELETAL: Well developed, well nourished, good range of motion ENDOCRINE: No thyromegaly LYMPHATICS: No cervical chain or axillary nodes were noted HEMATOPOIETIC: No bruising NECK: Supple, no JVD, no thyromegaly was noted. LUNGS: Clear to auscultation in all lung martinez without rhonchi or wheezing. HEART: RRR, S1, S2 present. Peripheral pulses intact, no obvious murmurs were noted. ABDOMEN: Soft, nontender. Positive bowel sounds no organomegaly, normal bowel sounds. EXTREMITIES: Without any cyanosis, clubbing, or edema. Pedal pulses intact, Homans sign is negative. NEUROLOGIC: Normal speech, normal tone. A & O x3, moves all extremities, no obvious focal deficits. PSYCHIATRIC: Normal affect, normal mood. Stable. SKIN: No ulcerations or rashes, good skin turgor, no jaundice. VASCULAR: Good capillary refill, neurovascular bundle appears to be intact. General: Alert, Oriented X3, Cooperative, No acute distress Heart: Regular rate Lungs: Clear Abdomen: Normal bowel sounds, Soft Extremities: No cyanosis Skin: No rashes FINAL DIAGNOSIS Problems Medical Problems: (1) Hyponatremia Status: Acute (2) Influenza A Status: Acute Brief Hospital Course Mr. Temple is a 58 old [sex] who presented with [ ACUTE HYPOXIA, INFLUENZA A ] CONDITION AT DISCHARGE: Improved Discharge Medications Current Medications Acetaminophen/ Hydrocodone Bitart (Lortab 5/325) 1 tab 1X ONCE PO Last administered on 07/21/19at 03:53; Start 07/21/19 at 03:45; Stop 07/21/19 at 03:46; Status DC Oseltamivir Phosphate (Tamiflu) 75 mg 1X ONCE PO Last administered on 07/21/19at 03:53; Start 07/21/19 at 03:45; Stop 07/21/19 at 03:46; Status DC Sodium Chloride 1,000 ml @ 1,000 mls/hr 1X ONCE IV Last administered on 07/21/19at 04:00; Start 07/21/19 at 04:00; Stop 07/21/19 at 04:59; Status DC Sodium Chloride 1,000 ml @ 125 mls/hr Q8H IV Last administered on 07/21/19at 20:16; Start 07/21/19 at 04:00; Stop 07/22/19 at 03:59; Status DC Albuterol/ Ipratropium (Duoneb) 3 ml RTQID NEB Last administered on 07/22/19at 07:14; Start 07/21/19 at 08:00; Stop 07/22/19 at 07:59; Status DC Acetaminophen (Tylenol) 650 mg PRN Q6HRS PRN PO MILD PAIN / TEMP Last a dministered on 07/21/19at 14:41; Start 07/21/19 at 14:45 Oseltamivir Phosphate (Tamiflu) 75 mg BID PO Last administered on 07/23/19at 08:58; Start 07/21/19 at 21:00; Stop 07/26/19 at 20:59 Acetaminophen/ Hydrocodone Bitart (Lortab 5/325) 1 tab PRN Q4HRS PRN PO MODERATE-SEVERE PAIN; Start 07/21/19 at 16:15 Potassium Chloride (Klor-Con) 40 meq 1X ONCE PO Last administered on 07/22/19at 10:49; Start 07/22/19 at 09:00; Stop 07/22/19 at 09:01; Status DC Potassium Chloride (Klor-Con) 20 meq DAILYWBKFT PO Last administered on 07/23/19at 08:58; Start 07/23/19 at 08:00 Potassium Chloride (Klor-Con) 20 meq 1X ONCE PO Last administered on 07/22/19at 12:55; Start 07/22/19 at 11:45; Stop 07/22/19 at 11:48; Status DC Vital Signs Vital Signs Date Time Temp Pulse Resp B/P (MAP) Pulse Ox O2 Delivery O2 Flow Rate FiO2 07/23/19 11:00 97.9 94 18 136/84 (101) 96 Room Air 97.9 Labs Laboratory Tests Test 07/22/19 09:25 07/23/19 03:34 White Blood Count 5.1 x10^3/uL (4.0-11.0) Red Blood Count 3.96 x10^6/uL (4.30-5.70) Hemoglobin 12.1 g/dL (13.0-17.5) Hematocrit 35.4 % (39.0-53.0) Mean Corpuscular Volume 90 fL (79-100) Mean Corpuscular Hemoglobin 31 pg (25-35) Mean Corpuscular Hemoglobin Concent 34 g/dL (31-37) Red Cell Distribution Width 12.9 % (11.5-14.5) Platelet Count 122 x10^3/uL (140-400) Neutrophils (%) (Auto) 60 % (31-73) Lymphocytes (%) (Auto) 27 % (24-48) Monocytes (%) (Auto) 13 % (0-9) Eosinophils (%) (Auto) 0 % (0-3) Basophils (%) (Auto) 1 % (0-3) Neutrophils # (Auto) 3.0 x10^3/uL (1.8-7.7) Lymphocytes # (Auto) 1.4 x10^3/uL (1.0-4.8) Monocytes # (Auto) 0.6 x10^3/uL (0.0-1.1) Eosinophils # (Auto) 0.0 x10^3/uL (0.0-0.7) Basophils # (Auto) 0.0 x10^3/uL (0.0-0.2) Sodium Level 137 mmol/L (136-145) 139 mmol/L (136-145) Potassium Level 3.2 mmol/L (3.5-5.1) 4.1 mmol/L (3.5-5.1) Chloride Level 105 mmol/L (98-107) 104 mmol/L (98-107) Carbon Dioxide Level 25 mmol/L (21-32) 28 mmol/L (21-32) Anion Gap 7 (6-14) 7 (6-14) Blood Urea Nitrogen 13 mg/dL (8-26) 12 mg/dL (8-26) Creatinine 1.1 mg/dL (0.7-1.3) 1.1 mg/dL (0.7-1.3) Estimated GFR (Cockcroft-Gault) 82.6 82.6 Glucose Level 121 mg/dL (70-99) 95 mg/dL (70-99) Calcium Level 7.7 mg/dL (8.5-10.1) 8.4 mg/dL (8.5-10.1) Laboratory Tests Test 07/23/19 03:34 Sodium Level 139 mmol/L (136-145) Potassium Level 4.1 mmol/L (3.5-5.1) Chloride Level 104 mmol/L (98-107) Carbon Dioxide Level 28 mmol/L (21-32) Anion Gap 7 (6-14) Blood Urea Nitrogen 12 mg/dL (8-26) Creatinine 1.1 mg/dL (0.7-1.3) Estimated GFR (Cockcroft-Gault) 82.6 Glucose Level 95 mg/dL (70-99) Calcium Level 8.4 mg/dL (8.5-10.1) Allergies Allergies Coded Allergies Type Severity Reaction Last Updated Verified No Known Drug Allergies 07/21/19 No Disposition/Orders: D/C to Home ANKITA ALVES MD Jul 23, 2019 12:37
[2019-07-23] MEDS ORDERED: POTA20TA4 PO (12:39)
[2019-07-23] MEDS ORDERED: OSEL75CA PO (12:39)
[2019-07-23] MEDS ORDERED: ACET325T9 PO (12:39)
--- NOTE | 2019-07-23 12:40 | DISCH ---
DISCHARGE INSTRUCTIONS Condition on Discharge Condition on Discharge: Stable Activity After Discharge Activity Instructions for Disc: Activity as tolerated Lifting Instructions after Dis: No heavy lifting, No pulling or pushing Driving Instructions after Dis: Do not drive today Diet after Discharge Diet after Discharge: Regular Checks after Discharge Checks after discharge: Check blood press - daily Contacting the DRNicole after DC Call your doctor for: If your condition worsens Warfarin Follow-Up Warfarin Follow UP: SEE PCP SOON IF NOT IMPROVING ANKITA ALVES MD Jul 23, 2019 12:40
--- NOTE | 2019-07-23 14:32 | PDOC ---
PULMONARY PROGRESS NOTES Subjective PT BETTER LESS SOA Vitals Vital Signs Date Time Temp Pulse Resp B/P (MAP) Pulse Ox O2 Delivery O2 Flow Rate FiO2 07/23/19 11:00 97.9 94 18 136/84 (101) 96 Room Air 97.9 ROS: No Nausea, No Chest Pain, No Abdominal Pain, No Increase Cough General: Alert Lungs: Wheezing Cardiovascular: S1, S2 Abdomen: Soft Neuro Exam: Alert Extremities: No Edema Skin: Warm Labs Laboratory Tests Test 07/22/19 09:25 07/23/19 03:34 White Blood Count 5.1 x10^3/uL (4.0-11.0) Red Blood Count 3.96 x10^6/uL (4.30-5.70) Hemoglobin 12.1 g/dL (13.0-17.5) Hematocrit 35.4 % (39.0-53.0) Mean Corpuscular Volume 90 fL (79-100) Mean Corpuscular Hemoglobin 31 pg (25-35) Mean Corpuscular Hemoglobin Concent 34 g/dL (31-37) Red Cell Distribution Width 12.9 % (11.5-14.5) Platelet Count 122 x10^3/uL (140-400) Neutrophils (%) (Auto) 60 % (31-73) Lymphocytes (%) (Auto) 27 % (24-48) Monocytes (%) (Auto) 13 % (0-9) Eosinophils (%) (Auto) 0 % (0-3) Basophils (%) (Auto) 1 % (0-3) Neutrophils # (Auto) 3.0 x10^3/uL (1.8-7.7) Lymphocytes # (Auto) 1.4 x10^3/uL (1.0-4.8) Monocytes # (Auto) 0.6 x10^3/uL (0.0-1.1) Eosinophils # (Auto) 0.0 x10^3/uL (0.0-0.7) Basophils # (Auto) 0.0 x10^3/uL (0.0-0.2) Sodium Level 137 mmol/L (136-145) 139 mmol/L (136-145) Potassium Level 3.2 mmol/L (3.5-5.1) 4.1 mmol/L (3.5-5.1) Chloride Level 105 mmol/L (98-107) 104 mmol/L (98-107) Carbon Dioxide Level 25 mmol/L (21-32) 28 mmol/L (21-32) Anion Gap 7 (6-14) 7 (6-14) Blood Urea Nitrogen 13 mg/dL (8-26) 12 mg/dL (8-26) Creatinine 1.1 mg/dL (0.7-1.3) 1.1 mg/dL (0.7-1.3) Estimated GFR (Cockcroft-Gault) 82.6 82.6 Glucose Level 121 mg/dL (70-99) 95 mg/dL (70-99) Calcium Level 7.7 mg/dL (8.5-10.1) 8.4 mg/dL (8.5-10.1) Laboratory Tests Test 07/23/19 03:34 Sodium Level 139 mmol/L (136-145) Potassium Level 4.1 mmol/L (3.5-5.1) Chloride Level 104 mmol/L (98-107) Carbon Dioxide Level 28 mmol/L (21-32) Anion Gap 7 (6-14) Blood Urea Nitrogen 12 mg/dL (8-26) Creatinine 1.1 mg/dL (0.7-1.3) Estimated GFR (Cockcroft-Gault) 82.6 Glucose Level 95 mg/dL (70-99) Calcium Level 8.4 mg/dL (8.5-10.1) Medications Active Scripts Medications Dose Route/Sig Max Daily Dose Days Date Category Klor-Con M20 (Potassium Chloride) 20 Meq Tab.er.prt 20 Meq PO DAILYWBKFT 10 07/23/19 Rx Tylenol (Acetaminophen) 325 Mg Tablet 650 Mg PO PRN Q6HRS PRN 10 07/23/19 Rx Tamiflu (Oseltamivir Phosphate) 75 Mg Capsule 75 Mg PO BID 4 07/23/19 Rx Impression . IMPRESSION: 1. Influenza A 2. Hyponatremia. 3. Acute kidney injury. 4. Wheezing and respiratory distress secondary to influenza. Plan . DC TODAY FOLLOW UP WITH PCP HERO BRITT MD Jul 23, 2019 14:32
== END 2019-07-23 13:20 | disposition home or self-care (01) | DRG 682 ==
LOC: ER 01:56 → 4 NORTH 03:40
PROVIDERS: ADMIT Internal Medicine; ATTEND Internal Medicine
DX: N17.0 Acute kidney failure with tubular necrosis (principal); J96.01 Acute respiratory failure with hypoxia; E87.1 Hypo-osmolality and hyponatremia; J98.11 Atelectasis; J10.1 Influenza due to other identified influenza virus with other respiratory manifestations; D69.59 Other secondary thrombocytopenia; Z82.49 Family history of ischemic heart disease and other diseases of the circulatory system; Z79.899 Other long term (current) drug therapy
CPT/HCPCS: 36415; 71045; 80048; 80053; 81001; 83930; 83935; 84443; 84484; 85025; 87804; 93005; 94640; 94760; J7030; J7620; 99285-25; G0378